=== PATIENT | male | born 1965 | race Caucasian/White ===

== ENCOUNTER 2017-02-14 11:14 | Emergency (ER) | payer MEDICAID ==
[~2017-02-14] VITALS: Ht 175.3 cm; Wt 93.4 kg
[~2017-02-14 11:14] MED LIST: /HYDR10T PO; /NITR4TASL SL; /PANT40TA OR; /TIOT18INH INH; ALB2.5NEB INH; ALBU17IN INH; ALBU2TAB INH; AMBI12.52 PO; ASPI325T OR; ASPI81TA13 PO; ASPI81TA83 OR; ASPI81TA85 PO; ATEN25TA OR; BACTROBAN; BUTATAB16 PO; CARV3.12 PO; CRES40TA PO; DEPA500T2 OR; DOCU10ELUD PO; FIORICET OR; GABA300C3 PO; GABA600T3 OR; ISOS10TAB PO; ISOS30TA4 PO; KEPP500T6 PO; LIDO5OI TOP; LISI2.5T3 PO; LORA10TA2 PO; MECL-68 PO; METF1000 PO; NITR4TASL SL; NITROSTAT SL; PARO40TA PO; PAXI40TA OR; PHEN 25 PO; PLAV75TA2 OR; PLAV75TA38 PO; RANI150T PO; SIMV40TA2 OR; SYMB80AE IN; TIOT18INH INH; TRAZ150T OR; TRAZODONE PO; VITA20008 PO; VITA500C OR; ZANT150T PO; ZONI100C2 PO; [UNRECOGNIZED DRUG - CODE] EX
[2017-02-14] MEDS ORDERED: KEPP1000 PO (11:42)
[2017-02-14] MEDS ORDERED: AMBI5TAB PO (11:42)
[2017-02-14] MEDS ORDERED: NEUR600T PO (11:42)
[2017-02-14] MEDS ORDERED: FOLI5INJ2 SC (11:42)
[2017-02-14] MEDS ORDERED: FURO20TA2 PO (11:42)
[2017-02-14] MEDS ORDERED: MELO15TA4 PO (11:42)
[2017-02-14] MEDS ORDERED: LISI2.5T3 PO (11:42)
[2017-02-14] MEDS ORDERED: CORE6.25 PO (11:42)
[2017-02-14 12:59] LABS: BASO % 0.1 % (0.0-1.0); EOS % 0.1 % (0.0-3.0); LARGE UNSTAINED CELL # 0.2 K/mm3 (0.0-0.4); LARGE UNSTAINED CELL % 1.3 % (0.0-4.0); LYMPH # 1.1 K/mm3 (1.5-4.5); LYMPH % 7.1 % (24.0-44.0); MEAN CORPUSCULAR HEMOGLOBIN 27.2 pg (27.0-33.0); MEAN CORPUSCULAR HGB CONC 31.4 g/dl (32.0-36.5); MEAN CORPUSCULAR VOLUME 86.6 fl (80.0-96.0); MONO # 0.5 K/mm3 (0.0-0.8); MONO % 4.2 % (0.0-5.0); NEUTROPHILS % 87.2 % (36.0-66.0); PLATELET COUNT, AUTOMATED 329 k/mm3 (150-450); RED CELL DISTRIBUTION WIDTH 13.6 % (11.5-14.5); WHITE BLOOD COUNT 12.6 K/mm3 (4.0-10.0)
[2017-02-14 13:13] LABS: ALBUMIN 3.8 GM/DL (3.2-5.2); ALBUMIN/GLOBULIN RATIO 0.95 (1.00-1.93); BILIRUBIN,DIRECT 0.1 MG/DL (0.0-0.2); BILIRUBIN,TOTAL 0.4 MG/DL (0.2-1.0); TOTAL PROTEIN 7.8 GM/DL (6.4-8.2)
[2017-02-14 13:15] LABS: ANION GAP 8 MEQ/L (8-16); BLOOD UREA NITROGEN 10 MG/DL (7-18); CALCIUM LEVEL 9.4 MG/DL (8.5-10.1); CARBON DIOXIDE LEVEL 27 MEQ/L (21-32); CHLORIDE LEVEL 105 MEQ/L (98-107); GLOMERULAR FILTRATION RATE > 60.0 (>56); GLUCOSE, FASTING 116 MG/DL (70-105); POTASSIUM SERUM 3.7 MEQ/L (3.5-5.1); SODIUM LEVEL 140 MEQ/L (136-145)
[2017-02-14] MEDS ORDERED: PROT1TAB2 PO (13:37)
[2017-02-14] MEDS ORDERED: CARA1TAB2 PO (13:37)
[2017-02-14] MEDS ORDERED: PANTOPRAZOLE 40MG INJ (PROTONIX) (C9113) IV ONE (13:45)
[2017-02-14 14:44] VITALS: BP 100/57
--- NOTE | 2017-02-15 20:44 | ECGEPIP ---
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
== END 2017-02-14 14:50 | disposition home or self-care (01) ==
LOC: M ED 13:24
DX: K29.70 Gastritis, unspecified, without bleeding (principal); K22.70 Barrett's esophagus without dysplasia; J44.9 Chronic obstructive pulmonary disease, unspecified; I10 Essential (primary) hypertension; I25.10 Atherosclerotic heart disease of native coronary artery without angina pectoris; F17.210 Nicotine dependence, cigarettes, uncomplicated; Z88.0 Allergy status to penicillin; Z91.048 Other nonmedicinal substance allergy status; Z91.040 Latex allergy status; Z79.899 Other long term (current) drug therapy; Z79.02 Long term (current) use of antithrombotics/antiplatelets
CPT/HCPCS: 80048; 80076; 82550; 82553; 83690; 85025; 93005; 93041; 94760; 96374; 99285; C9113

== ENCOUNTER 2017-04-04 15:45 | Observation (INO) | payer MEDICAID ==
[~2017-04-04] VITALS: Ht 175.3 cm; Wt 97.4 kg
[~2017-04-04 15:45] MED LIST changes: +AMBI5TAB PO; +CARA1TAB2 PO; +CORE6.25 PO; +FOLI5INJ2 SC; +FURO20TA2 PO; +GABA-282 PO; -GABA300C3 PO; +KEPP1000 PO; +MELO15TA4 PO; +NEUR600T PO; -PARO40TA PO; +PARO40TA2 PO; +PROT1TAB2 PO
[2017-04-04] MEDS ORDERED: FOLI1TAB2 PO (16:02)
[2017-04-04] MEDS ORDERED: ASPIRIN 81 MG CHEW TABLET PO ONE (16:30)
[2017-04-04] MEDS ORDERED: ONDANSETRON 4MG/2ML VIAL (J2405) IV ONE (16:30)
[2017-04-04 16:43] LABS: BASO % 0.7 % (0.0-1.0); EOS # 0.1 K/mm3 (0.0-0.50); EOS % 0.9 % (0.0-3.0); LARGE UNSTAINED CELL # 0.2 K/mm3 (0.0-0.4); LARGE UNSTAINED CELL % 3.7 % (0.0-4.0); LYMPH # 1.9 K/mm3 (1.5-4.5); LYMPH % 25.8 % (24.0-44.0); MEAN CORPUSCULAR HEMOGLOBIN 26.2 pg (27.0-33.0); MEAN CORPUSCULAR HGB CONC 32.1 g/dl (32.0-36.5); MEAN CORPUSCULAR VOLUME 81.7 fl (80.0-96.0); MONO # 0.5 K/mm3 (0.0-0.8); MONO % 8.2 % (0.0-5.0); NEUTROPHILS # 3.9 K/mm3 (1.8-7.7); NEUTROPHILS % 60.7 % (36.0-66.0); PLATELET COUNT, AUTOMATED 262 k/mm3 (150-450); RED CELL DISTRIBUTION WIDTH 14.4 % (11.5-14.5); WHITE BLOOD COUNT 6.4 K/mm3 (4.0-10.0)
[2017-04-04] MEDS: MORPHINE 4 MG/ML 1ML SYRINGE IV PRN ×2 (16:44→17:50)
[2017-04-04 16:54] LABS: INR 0.98
[2017-04-04 17:03] LABS: ALBUMIN 3.5 GM/DL (3.2-5.2); ALBUMIN/GLOBULIN RATIO 0.97 (1.00-1.93); ALKALINE PHOSPHATASE 115 U/L (45-117); ALT/SGPT 18 U/L (12-78); ANION GAP 8 MEQ/L (8-16); AST/SGOT 16 U/L (15-37); BILIRUBIN,DIRECT < 0.1 MG/DL (0.0-0.2); BILIRUBIN,TOTAL 0.3 MG/DL (0.2-1.0); BLOOD UREA NITROGEN 9 MG/DL (7-18); CALCIUM LEVEL 8.5 MG/DL (8.5-10.1); CARBON DIOXIDE LEVEL 26 MEQ/L (21-32); CHLORIDE LEVEL 108 MEQ/L (98-107); CREATININE FOR GFR 0.94 MG/DL (0.70-1.30); FREE T4 0.95 NG/DL (0.76-1.46); GLOMERULAR FILTRATION RATE > 60.0 (>56); GLUCOSE, FASTING 84 MG/DL (70-105); POTASSIUM SERUM 3.6 MEQ/L (3.5-5.1); SODIUM LEVEL 142 MEQ/L (136-145); TOTAL PROTEIN 7.1 GM/DL (6.4-8.2)
[2017-04-04] MEDS ORDERED: ISOVUE-370 76% 100ML VIAL (Q9967) As Ordered ONE (17:14)
[2017-04-04] MEDS ORDERED: methylPREDNISolone INJ 125 MG/2 ML VIAL (J2930) IV ONE (17:15)
[2017-04-04] MEDS ORDERED: IPRATROPIUM 0.5MG/ALBUTEROL 2.5MG INH SOL UD 3ML (DUONEB)(J7620) NEB ONE (17:15)
[2017-04-04] MEDS ORDERED: ALBUTEROL SULFATE 2.5 MG/0.5 ML INH NEB SOLN INH ONE (17:15)
[2017-04-04 17:51] LABS: ABG BASE EXCESS -1.8 (-2.0-2.0); ABG HCO3 23.5 MEQ/L (22.0-26.0); ABG PARTIAL PRESSURE O2 74.6 mmHg (75.0-100.0); ABG STANDARD HCO3 22.9 MEQ/L (22.0-26.0); ABG TOTAL CO2 24.8 MEQ/L (22.0-29.0); ABG pH (ARTERIAL) 7.366 UNITS (7.350-7.450)
[2017-04-04] MEDS: NS 1,000 ML IV SCH (18:30)
--- NOTE | 2017-04-04 18:55 | REP ---
AP PORTABLE CHEST: 04/04/2017: Comparison: 02/12/2017, 02/09/2017 chest x-rays. Clinical history: Chest pain. Findings: Lungs are adequately inflated. There is some minor basilar fibrotic change. No effusion, infiltrate or mass. There is underlying fibrosis and COPD. Heart size not enlarged for this degree of inflation. There are sternotomy wires and clips in the mediastinum. The two level anterior discectomy plate and screw fixation device noted lower cervical spine as before. There is mildly tortuous but normal for age. Airway intact. No widened mediastinum. No edema. Impression: 1. Some basilar fibrotic change without cardiomegaly, edema, effusion or acute infiltrate. 2. Prior sternotomy and anterior cervical discectomy and fusion are stable. Signed by Too Garcia MD 04/05/2017 05:21 P
--- NOTE | 2017-04-04 19:32 | REP ---
CT ANGIO CHEST: REASON: Chest pain. COMPARISON: 01/27/2017 from [facility] which showed no pulmonary embolus. CONTRAST: 100 mL Isovue-370. Once again there is excellent visualization of the pulmonary arterial vasculature showing no evidence of an abnormal focal filling defect that would be considered consistent with an acute pulmonary embolus. The mediastinum and pulmonary catrachito are unchanged showing no evidence of a mass or adenopathy. There are no pleural or pericardial effusions. There is no change in the appearance of the imaged upper abdomen or imaged osseous structures. Evaluation of the lung chu show evidence of bilateral subsegmental atelectatic change without evidence of a significant abnormal nodule, mass, or opacity. No significant change in the appearance of the lung chu when compared to the prior exam. IMPRESSION:1. No evidence of a pulmonary embolus. 2. Bilateral dependent subsegmental atelectatic changes. Signed by Rich Killian DO 04/05/2017 03:36 P
[2017-04-04] MEDS ORDERED: ALBU83IN INH (20:47)
[2017-04-04] MEDS ORDERED: HYDR50CA2 PO (20:47)
[2017-04-04] MEDS ORDERED: TYLE325T5 PO (20:47)
[2017-04-04] MEDS ORDERED: PANT40TA2 PO (20:47)
[2017-04-04] MEDS ORDERED: VITA100066 PO (20:47)
[2017-04-04] MEDS ORDERED: ZOLP10TA2 PO (20:47)
[2017-04-04] MEDS ORDERED: VITA10002 PO (20:47)
[2017-04-04] MEDS ORDERED: ACET30TAB PO (20:47)
[2017-04-04] MEDS ORDERED: SUCR10SS PO (20:47)
[2017-04-04] MEDS ORDERED: CYANOCOBALAMIN 500 MCG TAB PO SCH (21:00)
[2017-04-04] MEDS ORDERED: ROSUVASTATIN 10 MG TAB (CRESTOR) PO SCH (21:00)
[2017-04-04] MEDS ORDERED: KETOROLAC 30 MG/ML VIAL (J1885) IV ONE (21:45)
[2017-04-04] MEDS ORDERED: KETOROLAC 30 MG/ML VIAL (J1885) As Ordered ONE (21:45)
[2017-04-05] MEDS ORDERED: ONDANSETRON 4 MG TAB (S0181) PO PRN
[2017-04-05] MEDS ORDERED: ONDANSETRON 4MG/2ML VIAL (J2405) IV PRN
[2017-04-05] MEDS ORDERED: IPRATROPIUM 0.5MG/ALBUTEROL 2.5MG INH SOL UD 3ML (DUONEB)(J7620) NEB PRN
[2017-04-05] MEDS ORDERED: ACETAMINOPH W/CODEINE #3 TAB UD PO PRN
--- NOTE | 2017-04-05 00:09 | HPEPDOC ---
Medical History and Physical Date of Admission April 04, 2017 at 23:50 History and Physical HISTORY AND PHYSICAL Date of admission: 04/04/2017 PCP: Dr. Anderson Chief complaint: Chest pain and shortness of breath HPI: 52-year-old male with coronary artery disease status post cardiac stents and CABG, hyperlipidemia, hypertension, COPD, seizure disorder, alcoholic liver disease who presented with shortness of breath and chest pain. He states that he went to see a back doctor today, and while at the back doctor he mentioned that he had chest pain and shortness of breath, so the back doctor advised him to come straight to the emergency department. He states that the chest pain and shortness of breath started at 2:10 PM today. He describes it as centrally located and nonradiating, with a sensation of a needle going through his chest. He states that nothing really made it better or worse. He does state that when he sits up, his difficulty breathing gets a little bit better, but walking makes his difficulty breathing worse. He reports that he is still experiencing a little bit of this sensation. Past medical history: coronary artery disease status post cardiac stents and CABG, hyperlipidemia, hypertension, COPD, seizure disorder, alcoholic liver disease Past surgical history: CABG, cardiac stents, multiple back surgeries, appendectomy, adenoidectomy, jaw surgery, eustachian tube surgery Family history: He reports a sister who has cancer, but he is unsure what kind. Social history: The patient currently lives alone. He smokes approximately half a pack per day. He quit drinking and quit using illicit drugs approximately 9 years ago. Allergies: Latex, penicillin, tape Review of systems: General: Positive for chills, negative for fever Eyes: Negative for vision changes and ocular discharge ENT: Positive for sore throat, negative for nose bleed Cardiovascular: Positive for chest pain and palpitations Respiratory: Positive for cough and shortness of breath GI: Negative for nausea, vomiting, diarrhea Musculoskeletal: Positive for neck and back pain Neuro: Positive for headache, negative for dizziness, numbness, tingling Psych: Positive for depression, negative for suicidal ideation Endocrine: Negative for polyuria : Positive for dysuria Heme: Negative for bruising and bleeding Home meds: See below Physical exam: Vital signs: Vital Signs Date Time Temp Pulse Resp B/P (MAP) Pulse Ox O2 Delivery O2 Flow Rate FiO2 04/05/17 00:01 77 93 04/04/17 23:31 101/65 (77) 04/04/17 19:31 97.9 15 04/04/17 15:46 Room Air Gen.: awake, alert, no acute distress Eyes: Extraocular movements intact, normal sclera ENT: Moist mucous membranes Cardiovascular: RRR, no murmurs rubs or gallops Lungs: clear to auscultation bilaterally, no rales, rhonchi, or wheeze Abdomen: Soft, TTP of RUQ Musculoskeletal: normal range of motion Extremities: No peripheral edema Neuro: normal speech, no focal deficits, alert and oriented to person, being in an ED, and year; he got which hospital right on the second try and he told me he doesn't know the president because he has "trouble understanding things" Psych: Normal mood with congruent affect Labs and radiology: See below CBC, CMP, coags, BMP, TSH, free T4 are all unremarkable Troponins are negative 2 EKG is not indicative of acute infarct or ischemia Chest x-rays unremarkable CTA shows no evidence of PE Assessment and plan: 52-year-old male with coronary artery disease status post cardiac stents and CABG, hyperlipidemia, hypertension, COPD, seizure disorder, alcoholic liver disease who presented with shortness of breath and chest pain. 1. Shortness of breath with history of COPD: There is no clear etiology for this. The patient is stable on room air, and chest imaging shows no evidence of edema or infection. A BNP is normal. He is not wheezing. Given his history of COPD, we'll continue his home Spiriva, loratadine. We will also start the patient on as needed and scheduled DuoNeb's. 2. Chest pain with history of coronary artery disease status post cardiac stents and CABG: The patient does have a significant cardiac history, but at this point, his cardiac workup has been normal. We will complete a third troponin and monitor him on telemetry. Given his history of coronary artery disease with stenting and CABG, we will continue his home aspirin, Plavix, beta bernie, statin. 3. Hypertension: Continue home beta bernie, Lasix, HUONG inhibitor. 4. Seizure disorder: Continue home Keppra. 5. Alcoholic liver disease: The patient states he has been sober for 9 years and his LFTs are within normal limits. He does report some tenderness to palpation upon exam, so we will further evaluate with a right upper quadrant ultrasound. 6. Dysuria: We will check a UA. The patient is afebrile with a normal white count DVT prophylaxis: SCDs Dispo: place in observation status on the service of Dr. Rose; anticipate the patient should be up to go home within 24 hours Vital Signs Vital Signs Date Time Temp Pulse Resp B/P (MAP) Pulse Ox O2 Delivery O2 Flow Rate FiO2 04/05/17 00:01 77 93 04/04/17 23:31 101/65 (77) 04/04/17 19:31 97.9 15 04/04/17 15:46 Room Air Laboratory Data Labs 24H Laboratory Tests 2 04/04/17 16:27: White Blood Count 6.4, Red Blood Count 4.49, Hemoglobin 11.8L, Hematocrit 36.7L , Mean Corpuscular Volume 81.7, Mean Corpuscular Hemoglobin 26.2L, Mean Corpuscular Hemoglobin Concent 32.1, Red Cell Distribution Width 14.4, Platelet Count 262, Neutrophils (%) (Auto) 60.7, Lymphocytes (%) (Auto) 25.8, Monocytes ( %) (Auto) 8.2H, Eosinophils (%) (Auto) 0.9, Basophils (%) (Auto) 0.7, Neutrophils # (Auto) 3.9, Lymphocytes # (Auto) 1.9, Monocytes # (Auto) 0.5, Eosinophils # (Auto) 0.1, Basophils # (Auto) 0.0, Large Unclassified Cells % 3.7 , Large Unclassified Cells # 0.2, Prothrombin Time 13.1, Prothromb Time International Ratio 0.98, Activated Partial Thromboplast Time 26.9, Anion Gap 8 , Glomerular Filtration Rate > 60.0, Calcium Level 8.5, Aspartate Amino Transf ( AST/SGOT) 16, Alanine Aminotransferase (ALT/SGPT) 18, Alkaline Phosphatase 115, Total Bilirubin 0.3, Direct Bilirubin < 0.1, Total Creatine Kinase 108, Creatine Kinase MB 1.0, Creatine Kinase MB Relative Index 0.92, Troponin I < 0.02, B-Type Natriuretic Peptide 35.5, Total Protein 7.1, Albumin 3.5, Albumin/ Globulin Ratio 0.97L, Thyroid Stimulating Hormone (TSH) 1.090, Free Thyroxine 0.95 04/04/17 17:35: Blood Gas Bicarbonate Standard 22.9, Arterial Blood pH 7.366, Arterial Blood Partial Pressure CO2 42.0, Arterial Blood Partial Pressure O2 74.6L, Arterial Blood Total CO2 24.8, Arterial Blood HCO3 23.5, Arterial Blood Base Excess -1.8 , Arterial Blood Oxygen Saturation 94.3L 04/04/17 21:47: Total Creatine Kinase 104, Creatine Kinase MB 1.0, Creatine Kinase MB Relative Index 0.96, Troponin I < 0.02 CBC/BMP Laboratory Tests 04/04/17 16:27 Red Blood Count 4.49, Mean Corpuscular Volume 81.7, Mean Corpuscular Hemoglobin 26.2 L, Mean Corpuscular Hemoglobin Concent 32.1, Red Cell Distribution Width 14.4, Neutrophils (%) (Auto) 60.7, Lymphocytes (%) (Auto) 25.8, Monocytes (%) ( Auto) 8.2 H, Eosinophils (%) (Auto) 0.9, Basophils (%) (Auto) 0.7, Neutrophils # (Auto) 3.9, Lymphocytes # (Auto) 1.9, Monocytes # (Auto) 0.5, Eosinophils # ( Auto) 0.1, Basophils # (Auto) 0.0 Home Medications Scheduled Aspirin (Aspirin EC) 81 Mg Tab, 81 MG PO DAILY Carvedilol (Coreg) 6.25 Mg Tab, 6.25 MG PO BID Cholecalciferol (Vitamin D) 1,000 Unit Tab, 1,000 UNIT PO BID Clopidogrel Bisulfate (Plavix) 75 Mg Tab, 75 MG PO DAILY Cyanocobalamin (Vitamin B-12) 1,000 Mcg Tab, 1,000 MCG PO QHS Folic Acid (Folic Acid) 1 Mg Tab, 1 MG PO DAILY Furosemide (Furosemide) 20 Mg Tab, 20 MG PO DAILY Gabapentin (Neurontin) 600 Mg Tab, 600 MG PO TID Hydroxyzine Pamoate (Hydroxyzine Pamoate) 50 Mg Cap, 50 MG PO BID Levetiracetam (Keppra) 1,000 Mg Tab, 1,000 MG PO BID Lisinopril (Lisinopril) 2.5 Mg Tab, 2.5 MG PO DAILY Loratadine (Loratadine) 10 Mg Tab, 10 MG PO DAILY Pantoprazole Sodium (Pantoprazole Sodium) 40 Mg Tab, 40 MG PO DAILY Paroxetine (Paroxetine HCl) 40 Mg Tab, 40 MG PO DAILY Rosuvastatin Calcium (Crestor) 40 Mg Tab, 40 MG PO QHS Sucralfate (Sucralfate) 1 Gm/10 Ml Sandra, 1 GM PO ACHS Tiotropium [place] Monohydrate (Spiriva Handihaler) 5 Inhalation/Inhaler Powd, 1 INHALATION INH DAILY Zolpidem Tartrate (Zolpidem Tartrate) 10 Mg Tab, 10 MG PO QHS Zonisamide (Zonisamide) 100 Mg Cap, 300 MG PO QHS Scheduled PRN Acetaminophen (Tylenol) 325 Mg Tab, 650 MG PO Q4H PRN for PAIN Acetaminophen/Codeine (Tylenol/Codeine #3) Tab, 1 TAB PO TID PRN for PAIN Albuterol Sulfate (Ventolin Hfa) 200 Puff/8 Gm Aers, 2 PUFF INH Q4H PRN for SHORTNESS OF BREATH Albuterol Sulfate (Albuterol Sulfate) 2.5 Mg/3 Ml Nebu, 2.5 MG INH QID PRN for SHORTNESS OF BREATH Nitroglycerin (Nitrostat) 0.4 Mg Subl, 0.4 MG SL Q5MP PRN for CHEST PAIN Allergies Coded Allergies: Latex (Verified Allergy, Mild, RASH, 02/14/17) Penicillins (Verified Allergy, Mild, RASH, 02/14/17) Penicillins Cross Reactors (Verified Allergy, Mild, RASH, 02/14/17) TAPE (Verified Allergy, Unknown, HOSPITAL TAPE, 02/14/17) TJ RICH April 05, 2017 00:09
[2017-04-05] MEDS: hydrOXYzine 50 MG TAB PO SCH ×2 (00:52→09:10)
[2017-04-05] MEDS: CARVedilol 6.25 MG TAB PO SCH ×2 (00:54→09:00)
[2017-04-05] MEDS: SUCRALFATE SUSP 1GM/10ML UD PO SCH ×3 (00:54→12:40)
[2017-04-05] MEDS: VITAMIN D 1,000 INTERNATIONAL UNITS TABLET PO SCH ×2 (00:55→09:10)
[2017-04-05] MEDS: levETIRAcetam 250MG TABLET (KEPPRA) PO SCH ×2 (00:59→09:09)
[2017-04-05] MEDS: GABAPENTIN 300 MG CAP PO SCH ×2 (00:59→09:08)
[2017-04-05] MEDS: ACETAMINOPHEN TAB 650MG DOSE (2X325MG) PO PRN ×2 (01:03→06:53)
--- NOTE | 2017-04-05 01:50 | REPUSA ---
CLINICAL HISTORY: Abdominal pain. TECHNIQUE: Realtime sonographic images were obtained in multiple projections. COMMENTS: The liver is of normal size, parenchyma demonstrates normal echogenicity. No discrete hepatic mass is seen. There is no intra or extrahepatic biliary ductal dilatation. CBD measures 3.7mm. The gallbladder is p hysiologically distended without evidence of calculi. The gallbladder wall is not thickened and there is no pericholecystic fluid. There is no abdominal ascites. The right kidney measures 12.08x5.92x 5.76 cm, free of hydronephrosis. Right renal nonobstructing sto annette. IMPRESSION: No evidence of cholelithiasis or acute cholecystitis. Right renal nonobstructing stones. Thank you for your kind referral of this patient.
[2017-04-05] MEDS: IPRATROPIUM 0.5MG/ALBUTEROL 2.5MG INH SOL UD 3ML (DUONEB)(J7620) NEB SCH ×2 (02:13→07:47)
[2017-04-05] MEDS: NS 1,000 ML IV SCH ×2 (03:32→10:30)
[2017-04-05 03:57] VITALS: BP 104/66
[2017-04-05 07:39] LABS: BASO % 0.1 % (0.0-1.0); EOS % 0.2 % (0.0-3.0); LARGE UNSTAINED CELL % 0.4 % (0.0-4.0); LYMPH # 0.5 K/mm3 (1.5-4.5); LYMPH % 6.4 % (24.0-44.0); MEAN CORPUSCULAR HEMOGLOBIN 26.3 pg (27.0-33.0); MEAN CORPUSCULAR HGB CONC 31.2 g/dl (32.0-36.5); MEAN CORPUSCULAR VOLUME 84.4 fl (80.0-96.0); MONO # 0.2 K/mm3 (0.0-0.8); MONO % 2.6 % (0.0-5.0); NEUTROPHILS # 6.6 K/mm3 (1.8-7.7); NEUTROPHILS % 90.3 % (36.0-66.0); PLATELET COUNT, AUTOMATED 240 k/mm3 (150-450); RED CELL DISTRIBUTION WIDTH 14.3 % (11.5-14.5); WHITE BLOOD COUNT 7.3 K/mm3 (4.0-10.0)
[2017-04-05 08:00] VITALS: BP 94/56
[2017-04-05] MEDS ORDERED: TIOTROPIUM INHALER/CAPSULE (SPIRIVA) INH SCH (08:00)
[2017-04-05 08:03] LABS: ALBUMIN 3.2 GM/DL (3.2-5.2); ALBUMIN/GLOBULIN RATIO 0.82 (1.00-1.93); ALKALINE PHOSPHATASE 104 U/L (45-117); ALT/SGPT 14 U/L (12-78); ANION GAP 8 MEQ/L (8-16); AST/SGOT 15 U/L (15-37); BILIRUBIN,TOTAL 0.3 MG/DL (0.2-1.0); BLOOD UREA NITROGEN 14 MG/DL (7-18); CALCIUM LEVEL 8.4 MG/DL (8.5-10.1); CARBON DIOXIDE LEVEL 24 MEQ/L (21-32); CHLORIDE LEVEL 107 MEQ/L (98-107); CREATININE FOR GFR 1.23 MG/DL (0.70-1.30); GLOMERULAR FILTRATION RATE > 60.0 (>56); GLUCOSE, FASTING 177 MG/DL (70-105); MAGNESIUM LEVEL 1.9 MG/DL (1.8-2.4); POTASSIUM SERUM 3.8 MEQ/L (3.5-5.1); SODIUM LEVEL 139 MEQ/L (136-145); TOTAL PROTEIN 7.1 GM/DL (6.4-8.2)
[2017-04-05 09:00] VITALS: BP 94/56
[2017-04-05] MEDS ORDERED: PANTOPRAZOLE 40MG TAB (PROTONIX) PO SCH (09:00)
[2017-04-05] MEDS ORDERED: FOLIC ACID 1 MG TAB PO SCH (09:00)
[2017-04-05] MEDS ORDERED: PARoxetine 20 MG TAB PO SCH (09:00)
[2017-04-05] MEDS ORDERED: FUROSEMIDE 20 MG TAB PO SCH (09:00)
[2017-04-05] MEDS ORDERED: LISINOPRIL *2.5 MG* TAB PO SCH (09:00)
[2017-04-05] MEDS ORDERED: CLOPIDOGREL 75 MG TAB PO SCH (09:00)
[2017-04-05] MEDS ORDERED: LORATADINE 10 MG TAB PO SCH (09:00)
[2017-04-05] MEDS ORDERED: ASPIRIN 81 MG ENTERIC TAB PO SCH (09:00)
[2017-04-05 12:00] VITALS: BP 100/59
--- NOTE | 2017-04-06 08:27 | ECGEPIP ---
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
--- NOTE | 2017-04-06 08:36 | ECGEPIP ---
Stationary ECG Study [facility] - ED Test Date: 2017-04-05 Pat Name: NHUNG MALDONADO Department: Room: [place] [address] Gender: M Roll Cleaner: leydi : 1965 Requested By: Sai Del Castillo Order Number: [id number] Reading MD: Che Park Measurements Intervals [place] Rate: 63 P: 35 ID: 161 QRS: 37 QRSD: 111 T: 71 QT: 421 QTc: 434 Interpretive Statements SINUS RHYTHM POSSIBLE LEFT ATRIAL ENLARGEMENT INCOMPLETE RIGHT BUNDLE BRANCH BLOCK MODERATE T-WAVE ABNORMALITY, CONSIDER ANTERIOR ISCHEMIA SIMILAR 04/04/17 Electronically Signed On 04-06-2017 8:36:14 EDT by Che Park
--- NOTE | 2017-04-06 14:22 | DSES ---
DATE OF ADMISSION: 04/04/2017 DATE OF DISCHARGE: 04/05/2017 PRIMARY CARE PROVIDER: Jose Anderson MD FINAL DIAGNOSES: 1. Shortness of breath with musculoskeletal chest pain, rule out acute coronary syndrome (ACS). 2. History of hypertension. 3. Seizure disorder. 4. Alcoholic liver disease. 5. Dysuria. 6. Morbid obesity. HISTORY OF PRESENT ILLNESS: This is a 52-year-old male patient with underlying medical history of coronary artery disease status post coronary stent and coronary artery bypass graft (CABG), dyslipidemia, hypertension, chronic obstructive pulmonary disease (COPD), seizure disorder, alcoholic liver disease, who presented with shortness of breath, chest pain. He states that he went to see a back doctor yesterday and while at the back doctor he had mentioned that he had chest pain and shortness of breath so the back doctor advised him to come straight to the emergency room and he states that his chest pain and shortness of breath started around 2:10 p.m. today and described it as centrally located and nonradiating with a sensation that a needle is going through his chest. He states that nothing really made it better or worse. He does state that when he sits up his breathing gets better, when he is walking the breathing gets worse. Still having this sensation in the emergency room. HOSPITAL COURSE: In the emergency, CT angio was done, negative for pulmonary embolism (PE). EKG was done. Chest xray, ultrasound of the abdomen has also been done. Ultrasound of the abdomen shows no evidence of cholelithiasis or acute cholecystitis and right renal nonobstructing stone. Cardiac enzymes were done. Telemetry monitoring was done. Cardiac enzymes negative times three. BNP is 35.5. Bilirubin and liver function tests have been negative. Physical exam reveals pain to be exacerbated with palpation, likely musculoskeletal versus costochondritis. Physical therapy (PT) was done. Oxygen saturation was monitored. Patient does not quality for home oxygen. Patient passed physical therapy. Patient and family services (PFS) was consulted. Patient received [facility], reinstatement was advised. Home with physical therapy was recommended. VITAL SIGNS: Temperature 98.7, pulse 69, respirations 18, blood pressure 100/59, pulse oximetry 95% on room air. LABORATORY DATA: WBC 7.3, hemoglobin and hematocrit 11/35.4, platelets 240. Chemistry: Sodium 139, potassium 3.8, chloride 107, bicarbonate 24, BUN 14, creatinine 1.23. Cardiac enzymes negative times three, BNP 35.5. DISCHARGE MEDICATIONS: Patient's home medications of: - acetaminophen 650 mg by mouth every 4 hours as needed - Tylenol #3 one tablet three times a day as needed - Ventolin inhaler every 4 hours as needed - albuterol nebulizer treatments four times a day as needed - aspirin 81 mg by mouth daily - Coreg 6.25 mg by mouth twice a day - vitamin D 1000 units by mouth twice a day - Plavix 75 mg by mouth daily - vitamin B12 1000 mcg by mouth nightly - folic acid 1 mg by mouth daily - Lasix 20 mg by mouth daily - Neurontin 600 mg by mouth three times a day - hydroxyzine 60 mg by mouth twice a day - Keppra 1000 mg by mouth twice a day - lisinopril 2.5 mg by mouth daily - loratadine 10 mg by mouth daily - nitroglycerin 0.4 mg sublingual every 5 minutes as needed - Protonix 40 mg by mouth daily - Paxil 40 mg by mouth daily - Crestor 40 mg by mouth nightly - Carafate 1 gram by mouth before food and nightly - Spiriva inhalation daily - Ambien 10 mg by mouth nightly - zonisamide 300 mg by mouth nightly DISCHARGE INSTRUCTIONS: Patient is instructed to followup with primary care provider for further workup, return to the hospital if symptoms worsen.
== END 2017-04-05 17:47 | disposition home or self-care (01) ==
LOC: M ED 16:41 → M ED INP 23:50
PROVIDERS: ADMIT Hospitalist; ATTEND Hospitalist
DX: R07.89 Other chest pain (principal); R06.02 Shortness of breath; I10 Essential (primary) hypertension; K70.9 Alcoholic liver disease, unspecified; R30.0 Dysuria; E66.01 Morbid (severe) obesity due to excess calories; I25.10 Atherosclerotic heart disease of native coronary artery without angina pectoris; Z95.1 Presence of aortocoronary bypass graft; Z79.899 Other long term (current) drug therapy; Z79.02 Long term (current) use of antithrombotics/antiplatelets; J44.9 Chronic obstructive pulmonary disease, unspecified
CPT/HCPCS: 36415; 36600; 71010; 71275; 76705; 80048; 80053; 80076; 81001; 82550; 82553; 82803; 83735; 83880; 84439; 84443; 85025; 85610; 85730; 93005; 93041; 94640; 96374; 96375; 96376; 97161; 99285; J1885; J2405; J2930; Q9967

== ENCOUNTER 2017-07-10 10:08 | Emergency (ER) | payer MEDICAID, MEDICARE, OTHER ==
[~2017-07-10] VITALS: Ht 175.3 cm; Wt 101.0 kg
[~2017-07-10 10:08] MED LIST changes: +ACET30TAB PO; +ALBU83IN INH; -ASPI81TA13 PO; +ASPI81TA24 PO; -CARA1TAB2 PO; +CARA1TAB6 PO; +FOLI1TAB4 PO; +HYDR50CA2 PO; -KEPP1000 PO; +KEPP10002 PO; +KEPP1TAB PO; -KEPP500T6 PO; +PANT40TA2 PO; +PLAV1TAB2 PO; -PLAV75TA38 PO; +SUCR10SS PO; +TYLE325T5 PO; +VITA10002 PO; +VITA100066 PO; +ZOLP10TA2 PO
[2017-07-10] MEDS: NS 1,000 ML IV ONE (12:12)
[2017-07-10 12:17] LABS: BASO # 0.1 K/mm3 (0.0-0.2); BASO % 1.1 % (0.0-1.0); EOS # 0.1 K/mm3 (0.0-0.50); LARGE UNSTAINED CELL # 0.2 K/mm3 (0.0-0.4); LARGE UNSTAINED CELL % 2.7 % (0.0-4.0); LYMPH # 1.8 K/mm3 (1.5-4.5); MEAN CORPUSCULAR HGB CONC 31.4 g/dl (32.0-36.5); MEAN CORPUSCULAR VOLUME 79.6 fl (80.0-96.0); MONO # 0.7 K/mm3 (0.0-0.8); MONO % 10.7 % (0.0-5.0); NEUTROPHILS # 3.8 K/mm3 (1.8-7.7); NEUTROPHILS % 59.6 % (36.0-66.0); PLATELET COUNT, AUTOMATED 319 k/mm3 (150-450); RED CELL DISTRIBUTION WIDTH 15.4 % (11.5-14.5); WHITE BLOOD COUNT 6.3 K/mm3 (4.0-10.0)
[2017-07-10 12:20] LABS: INR 0.85
[2017-07-10 13:10] LABS: BLOOD UREA NITROGEN 9 MG/DL (7-18); GLUCOSE, FASTING 105 MG/DL (70-105)
[2017-07-10 13:11] LABS: ALBUMIN 3.5 GM/DL (3.2-5.2); ALBUMIN/GLOBULIN RATIO 0.78 (1.00-1.93); ALKALINE PHOSPHATASE 110 U/L (45-117); ALT/SGPT 15 U/L (12-78); ANION GAP 6 MEQ/L (8-16); AST/SGOT 20 U/L (15-37); BILIRUBIN,TOTAL 0.4 MG/DL (0.2-1.0); CALCIUM LEVEL 9.4 MG/DL (8.5-10.1); CARBON DIOXIDE LEVEL 28 MEQ/L (21-32); CHLORIDE LEVEL 106 MEQ/L (98-107); CREATININE FOR GFR 1.01 MG/DL (0.70-1.30); GLOMERULAR FILTRATION RATE > 60.0 (>56); POTASSIUM SERUM 4.5 MEQ/L (3.5-5.1); SODIUM LEVEL 140 MEQ/L (136-145)
--- NOTE | 2017-07-10 13:13 | REP ---
Acute abdominal series series including PA chest and supine upright abdomen: PA chest: Comparison is 04/08/2017. Lung chu are clear. Cardiac size is upper normal. The catrachito, mediastinum, and bony thorax are unremarkable. Sternotomy wires and mediastinal surgical clips are again identified. A coronary artery vascular stent is again identified, seen to better advantage on the prior lateral view. There is no free subdiaphragmatic air. There is a cervical spine stabilization plate, unchanged. Impression: Essentially negative PA chest. No interval change. Abdomen, supine upright views: Comparison is 05/31/2012. There is scattered gas in large and small bowel loops in a nonspecific pattern. No definite bowel obstruction is identified at this time. There are pelvic calcifications, unchanged, likely phleboliths. There is degenerative disc disease in the inferior lumbar spine. There are bilateral total hip arthroplasties. These were not present previously. Impression: Nonspecific bowel gas pattern. Signed by Adam Perez MD 07/10/2017 01:04 P
[2017-07-10] MEDS ORDERED: BACT800T5 PO (13:44)
[2017-07-10] MEDS ORDERED: MIRA3350 PO (13:44)
[2017-07-10] MEDS ORDERED: ANUS2.5C2 PR (13:44)
[2017-07-10 13:47] VITALS: BP 105/53
--- NOTE | 2017-07-10 16:11 | ECGEPIP ---
Stationary ECG Study [facility] - ED Test Date: 2017-07-10 Pat Name: NHUNG MALDONADO Department: Room: - Gender: M Nuisance Wildlife Control Operator: dedra : 1965 Requested By: HERMINIO MALDONADO PA-C. Order Number: [id number] Reading MD: Karthik Alcocer Measurements Intervals [place] Rate: 58 P: 32 PA: 156 QRS: 36 QRSD: 114 T: 57 QT: 427 QTc: 422 Interpretive Statements SINUS BRADYCARDIA INCOMPLETE RIGHT BUNDLE BRANCH BLOCK NSTTW ABNORMALITIES SIMILAR TO 04/05/17 Electronically Signed On 07-10-2017 16:11:16 EDT by Karthik Alcocer
== END 2017-07-10 14:21 | disposition home or self-care (01) ==
LOC: M ED 10:08
DX: R21 Rash and other nonspecific skin eruption (principal); K59.00 Constipation, unspecified; K64.8 Other hemorrhoids; Z88.0 Allergy status to penicillin; Z91.040 Latex allergy status; Z91.048 Other nonmedicinal substance allergy status; Z79.82 Long term (current) use of aspirin; Z79.899 Other long term (current) drug therapy

== ENCOUNTER 2017-07-18 10:05 | Emergency (ER) | payer MEDICAID ==
[~2017-07-18] VITALS: Ht 188 cm; Wt 103.6 kg
[~2017-07-18 10:05] MED LIST changes: +ANUS2.5C2 PR; +BACT800T5 PO; +MIRA3350 PO
[2017-07-18] MEDS ORDERED: ASPIRIN 81 MG CHEW TABLET PO ONE (10:15)
[2017-07-18 10:37] LABS: BASO # 0.1 K/mm3 (0.0-0.2); EOS # 0.1 K/mm3 (0.0-0.50); EOS % 1.2 % (0.0-3.0); LARGE UNSTAINED CELL # 0.2 K/mm3 (0.0-0.4); LYMPH # 1.6 K/mm3 (1.5-4.5); LYMPH % 21.7 % (24.0-44.0); MEAN CORPUSCULAR HEMOGLOBIN 25.5 pg (27.0-33.0); MEAN CORPUSCULAR HGB CONC 31.2 g/dl (32.0-36.5); MEAN CORPUSCULAR VOLUME 81.7 fl (80.0-96.0); MONO # 0.5 K/mm3 (0.0-0.8); MONO % 7.8 % (0.0-5.0); NEUTROPHILS # 4.4 K/mm3 (1.8-7.7); NEUTROPHILS % 65.4 % (36.0-66.0); PLATELET COUNT, AUTOMATED 300 k/mm3 (150-450); RED CELL DISTRIBUTION WIDTH 16.4 % (11.5-14.5); WHITE BLOOD COUNT 6.7 K/mm3 (4.0-10.0)
[2017-07-18 11:04] LABS: ALBUMIN 3.6 GM/DL (3.2-5.2); ALBUMIN/GLOBULIN RATIO 0.77 (1.00-1.93); ALKALINE PHOSPHATASE 99 U/L (45-117); ALT/SGPT 17 U/L (12-78); ANION GAP 5 MEQ/L (8-16); AST/SGOT 19 U/L (15-37); BILIRUBIN,DIRECT 0.1 MG/DL (0.0-0.2); BILIRUBIN,TOTAL 0.4 MG/DL (0.2-1.0); BLOOD UREA NITROGEN 11 MG/DL (7-18); CALCIUM LEVEL 9.7 MG/DL (8.5-10.1); CARBON DIOXIDE LEVEL 28 MEQ/L (21-32); CHLORIDE LEVEL 107 MEQ/L (98-107); CREATININE FOR GFR 0.97 MG/DL (0.70-1.30); GLOMERULAR FILTRATION RATE > 60.0 (>56); GLUCOSE, FASTING 95 MG/DL (70-105); POTASSIUM SERUM 3.8 MEQ/L (3.5-5.1); SODIUM LEVEL 140 MEQ/L (136-145); TOTAL PROTEIN 8.3 GM/DL (6.4-8.2)
--- NOTE | 2017-07-18 12:13 | REP ---
Portable chest x-ray: Semi-erect AP view. History: Chest pain. Comparison study: July 12, 2017. Findings: EKG monitoring electrodes overlie the chest. The patient is status post median sternotomy. The lungs are symmetrically aerated and clear. Cardiomediastinal silhouette and bony thorax are unremarkable. Impression: Prior sternotomy. Status post cervical fusion. No active disease. Signed by Nazario Lucia MD 07/18/2017 03:22 P
--- NOTE | 2017-07-18 13:18 | ECGEPIP ---
Stationary ECG Study [facility] - ED Test Date: 2017-07-18 Pat Name: NHUNG MALDONADO Department: Room: - Gender: M Skeins Yarn Examiner: [email or web address] : 1965 Requested By: ANDREA Jose Order Number: [id number] Reading MD: Che Park Measurements Intervals [place] Rate: 63 P: 30 RI: 152 QRS: 60 QRSD: 112 T: 70 QT: 411 QTc: 423 Interpretive Statements SINUS RHYTHM MODERATE INTRAVENTRICULAR CONDUCTION DELAY ST DEVIATION AND MODERATE T-WAVE ABNORMALITY, CONSIDER ANTERIOR ISCHEMIA SIMILAR 07/10/17 11:47 Electronically Signed On 07-18-2017 13:17:49 EDT by Che Park
[2017-07-18] MEDS: NITROGLYCERIN 0.4 MG SUBL TABLET SL PRN ×3 (13:21→14:00)
[2017-07-18] MEDS ORDERED: ISOVUE-370 76% 100ML VIAL (Q9967) As Ordered ONE (13:22)
[2017-07-18 14:00] VITALS: BP 118/68
--- NOTE | 2017-07-18 15:12 | REP ---
CT PULMONARY ANGIOGRAM: WITH IV CONTRAST. HISTORY: Chest pain and shortness of breath. COMPARISON STUDIES: 07/14/2017 CONTRAST DOSE: 75 mL of Isovue [address] TECHNIQUE: Helical scanning is acquired and overlapping 1.5 mm and contiguous 3 mm axial images are reformatted. In addition, a 3-D work station is deployed to generate thick slab maximum intensity projection images in sagittal and coronal imaging projections. CT PULMONARY ANGIOGRAPHIC FINDINGS: There is good opacification of the pulmonary arterial tree, and there is no CT evidence of pulmonary embolism noted. Thoracic aorta enhances homogeneously and is normal in course and caliber. Prior sternotomy wires are seen. Patient status post coronary artery bypass grafting. No pleural or pericardial effusion is seen. No hilar or mediastinal mass or adenopathy is seen. There appears to be a stent in the right subclavian artery. Maximum intensity projection images show no filling defect or vessel cutoff. There are several noncalcified pulmonary nodules noted. The largest of these is in the superior segment of the right lower lobe. This measures 6 mm in greatest diameter and is unchanged from the study done 4 days ago at [place]. There are also three additional noncalcified pulmonary nodules in the left lower lobe. Two of these are pleural based on the anterior aspect of the major fissure. The other is in the lateral pleural angle measuring 5 mm in greatest diameter. All of these nodules are visible and are unchanged when compared with the 12/[address] study. No new nodule is seen. The visualized upper abdominal structures are unremarkable. IMPRESSION: 1. No CT evidence of pulmonary embolism. 2. Stable pulmonary nodules on the right and left in the lower lobes. 3. Prior sternotomy coronary artery bypass grafting procedure. 4. Right subclavian artery stent in place. Signed by Nazario Lucia MD 07/18/2017 03:28 P
[2017-07-18] MEDS ORDERED: CLOPIDOGREL 300 MG TAB (PLAVIX) PO ONE (15:30)
[2017-07-18] MEDS ORDERED: MORPHINE 4 MG/ML 1ML SYRINGE IV ONE ×3 (15:30→19:45)
[2017-07-18] MEDS ORDERED: HEPARIN DRIP 25,000 UNITS in APPROPRIATE DILUENT 1 EA IV SCH (15:31)
[2017-07-18] MEDS ORDERED: HEPARIN SOD (PORCINE) 5000 UNITS/ML VIAL IV ONE (15:45)
[2017-07-18 20:12] VITALS: BP 130/74
--- NOTE | 2017-07-20 10:13 | ECGEPIP ---
Stationary ECG Study [facility] - ED Test Date: 2017-07-18 Pat Name: NHUNG MALDONADO Department: Room: - Gender: M Manual Winder: JMelissa : 1965 Requested By: ROMAN Mendez Order Number: [id number] Reading MD: Che Park Measurements Intervals [place] Rate: 56 P: 29 MT: 162 QRS: 35 QRSD: 112 T: 52 QT: 440 QTc: 426 Interpretive Statements SINUS BRADYCARDIA INCOMPLETE RIGHT BUNDLE BRANCH BLOCK ST DEVIATION AND MODERATE T-WAVE ABNORMALITY, CONSIDER ANTERIOR ISCHEMIA SIMILAR 07/18/17 Electronically Signed On 07-20-2017 10:13:28 EDT by Che Park
== END 2017-07-18 20:17 | disposition short-term general hospital (02) ==
LOC: M ED 10:05
DX: I20.0 Unstable angina (principal); I10 Essential (primary) hypertension; E78.4 Other hyperlipidemia; J44.9 Chronic obstructive pulmonary disease, unspecified; Z72.0 Tobacco use; Z95.1 Presence of aortocoronary bypass graft; Z98.61 Coronary angioplasty status
CPT/HCPCS: 36415; 71010; 71275; 80048; 80076; 82550; 82553; 83690; 83880; 85025; 93005; 93041; 94760; 96374; 96375; 96376; 99285; Q9967

== ENCOUNTER 2017-10-24 09:00 | Emergency (ER) | payer MEDICAID, MEDICARE, OTHER ==
[~2017-10-24] VITALS: Ht 175.3 cm; Wt 96.8 kg
[2017-10-24] MEDS ORDERED: MUPI2OI (09:19)
[2017-10-24] MEDS ORDERED: LEVOTAB10 (09:19)
[2017-10-24] MEDS ORDERED: ISOS30TA4 (09:19)
[2017-10-24] MEDS ORDERED: [UNRECOGNIZED DRUG - OTHER] (09:19)
[2017-10-24] MEDS ORDERED: FERR32TA (09:19)
[2017-10-24] MEDS ORDERED: ELIQ5TAB (09:19)
[2017-10-24] MEDS ORDERED: BACT2OIN10 TOP (09:54)
[2017-10-24] MEDS ORDERED: DOXY100C37 PO (09:54)
[2017-10-24 10:10] VITALS: BP 100/55
== END 2017-10-24 10:14 | disposition home or self-care (01) ==
LOC: M ED 09:00
DX: R21 Rash and other nonspecific skin eruption (principal); I10 Essential (primary) hypertension; J45.909 Unspecified asthma, uncomplicated; E78.00 Pure hypercholesterolemia, unspecified; F41.9 Anxiety disorder, unspecified; F33.9 Major depressive disorder, recurrent, unspecified; Z95.1 Presence of aortocoronary bypass graft; Z95.5 Presence of coronary angioplasty implant and graft; Z79.899 Other long term (current) drug therapy; Z79.82 Long term (current) use of aspirin; Z79.01 Long term (current) use of anticoagulants; Z88.0 Allergy status to penicillin; Z91.040 Latex allergy status; L23.1 Allergic contact dermatitis due to adhesives; F17.210 Nicotine dependence, cigarettes, uncomplicated

== ENCOUNTER 2017-12-12 10:40 | Inpatient (IN) | payer MEDICAID ==
[2017-12-12 11:27] LABS: ABG BASE EXCESS -1.2 (-2.0-2.0); ABG HCO3 23.8 MEQ/L (22.0-26.0); ABG O2 SATURATION 95.8 % (95.0-99.0); ABG PARTIAL PRESSURE CO2 40.9 mmHg (35.0-45.0); ABG PARTIAL PRESSURE O2 78.2 mmHg (75.0-100.0); ABG STANDARD HCO3 23.4 MEQ/L (22.0-26.0); ABG pH (ARTERIAL) 7.382 UNITS (7.350-7.450)
[2017-12-12 11:35] LABS: BASO # 0.1 10^3/uL (0.0-0.2); BASO % 0.8 % (0.0-1.0); EOS # 0.1 10^3/uL (0.0-0.50); EOS % 1.7 % (0.0-3.0); HEMATOCRIT 46.1 % (42.0-52.0); HEMOGLOBIN 15.3 g/dl (14.0-18.0); IMMATURE GRANULOCYTE % 0.3 % (0-0); LYMPH # 1.4 10^3/uL (1.5-4.5); LYMPH % 23.6 % (24.0-44.0); MEAN CORPUSCULAR HEMOGLOBIN 29.8 pg (27.0-33.0); MEAN CORPUSCULAR HGB CONC 33.2 g/dl (32.0-36.5); MEAN CORPUSCULAR VOLUME 89.7 fl (80.0-96.0); MONO # 0.7 10^3/uL (0.0-0.8); MONO % 11.9 % (0.0-5.0); NEUTROPHILS # 3.7 10^3/uL (1.8-7.7); NEUTROPHILS % 61.7 % (36.0-66.0); PLATELET COUNT, AUTOMATED 245 10^3/uL (150-450); RED BLOOD COUNT 5.14 10^6/uL (4.30-6.10); RED CELL DISTRIBUTION WIDTH 16.9 % (11.5-14.5)
[2017-12-12 11:44] LABS: INR 0.89; PROTHROMBIN TIME 12.1 SECONDS (12.4-14.5)
[2017-12-12 11:59] LABS: ALBUMIN/GLOBULIN RATIO 1.11 (1.00-1.93); ALKALINE PHOSPHATASE 106 U/L (45-117); ALT/SGPT 36 U/L (12-78); ANION GAP 8 MEQ/L (8-16); AST/SGOT 27 U/L (7-37); BILIRUBIN,DIRECT 0.1 MG/DL (0.0-0.2); BILIRUBIN,TOTAL 0.4 MG/DL (0.2-1.0); BLOOD UREA NITROGEN 4 MG/DL (7-18); CALCIUM LEVEL 8.9 MG/DL (8.5-10.1); CARBON DIOXIDE LEVEL 25 MEQ/L (21-32); CHLORIDE LEVEL 109 MEQ/L (98-107); CPK CREATINE PHOSPHOKINASE 132 U/L (39-308); CREATININE FOR GFR 0.96 MG/DL (0.70-1.30); GLOMERULAR FILTRATION RATE > 60.0 (>56); GLUCOSE, FASTING 104 MG/DL (70-105); POTASSIUM SERUM 4.2 MEQ/L (3.5-5.1); SODIUM LEVEL 142 MEQ/L (136-145); TOTAL PROTEIN 7.6 GM/DL (6.4-8.2); TROPONIN I < 0.02 NG/ML (< 0.10)
[2017-12-12 12:00] LABS: LACTIC ACID SEPSIS PROTOCOL 1.9 MMOL/L (0.4-2.0)
[2017-12-12 12:05] LABS: CK-MB VALUE MASS 1.4 NG/ML (0.0-3.6); MB/CK RELATIVE INDEX 1.06 (< OR =4); NT-PRO BNP 22 PG/ML (<125)
[2017-12-12] MEDS: ONDANSETRON 4MG/2ML VIAL (J2405) IV (12:15)
[2017-12-12] MEDS: MORPHINE 4 MG/ML 1ML SYRINGE IV (12:15)
[2017-12-12] MEDS: MORPHINE 2 MG/ML 1ML SYRINGE IV (13:50)
[2017-12-12] MEDS ORDERED: ALBUTEROL SULFATE 2.5 MG/0.5 ML INH NEB SOLN INH (18:30)
[2017-12-12] MEDS ORDERED: ALBUTEROL 90 MCG/ACT 8GM HFA INHALER INH (18:30)
[2017-12-12] MEDS ORDERED: ACETAMINOPHEN TAB 650MG DOSE (2X325MG) PO (18:45)
[2017-12-12] MEDS: PERCOCET 5MG/325MG TAB PO (18:55)
[2017-12-12] MEDS ORDERED: ONDANSETRON 4MG/2ML VIAL (J2405) IV (19:45)
[2017-12-12] MEDS: MAGNESIUM CITRATE 300 ML BTL PO (19:45)
[2017-12-12 19:46] LABS: CK-MB VALUE MASS 1.3 NG/ML (0.0-3.6); CPK CREATINE PHOSPHOKINASE 136 U/L (39-308); MB/CK RELATIVE INDEX 0.95 (< OR =4); TROPONIN I < 0.02 NG/ML (< 0.10)
[2017-12-12] MEDS: levETIRAcetam 250MG TABLET (KEPPRA) PO (21:00)
[2017-12-12] MEDS: traZODone 50 MG TAB PO (21:00)
[2017-12-12] MEDS: hydrOXYzine 50 MG TAB PO (21:00)
[2017-12-12] MEDS: FERROUS GLUCONATE 324 MG TAB PO ×2 (21:00→21:54)
[2017-12-12] MEDS: ZONISAMIDE 100 MG CAP (ZONEGRAN) PO (21:00)
[2017-12-12] MEDS: CYANOCOBALAMIN 500 MCG TAB PO (21:00)
[2017-12-12] MEDS: PANTOPRAZOLE 40MG TAB (PROTONIX) PO (21:00)
[2017-12-12] MEDS: APIXABAN 5 MG TAB (ELIQUIS) PO (21:00)
[2017-12-12] MEDS: BISACODYL 5 MG TAB PO (21:00)
[2017-12-12] MEDS: ROSUVASTATIN 10 MG TAB (CRESTOR) PO ×2 (21:00→21:51)
[2017-12-13] MEDS: PERCOCET 5MG/325MG TAB PO ×3 (02:15→21:30)
[2017-12-13 02:33] LABS: CK-MB VALUE MASS 1.1 NG/ML (0.0-3.6); CPK CREATINE PHOSPHOKINASE 125 U/L (39-308); MB/CK RELATIVE INDEX 0.88 (< OR =4); TROPONIN I < 0.02 NG/ML (< 0.10)
[2017-12-13 06:44] LABS: HEMATOCRIT 43.9 % (42.0-52.0); HEMOGLOBIN 14.2 g/dl (14.0-18.0); MEAN CORPUSCULAR HEMOGLOBIN 29.5 pg (27.0-33.0); MEAN CORPUSCULAR HGB CONC 32.3 g/dl (32.0-36.5); MEAN CORPUSCULAR VOLUME 91.3 fl (80.0-96.0); PLATELET COUNT, AUTOMATED 224 10^3/uL (150-450); RED BLOOD COUNT 4.81 10^6/uL (4.30-6.10); WHITE BLOOD COUNT 7.3 10^3/uL (4.0-10.0)
[2017-12-13 07:08] LABS: ANION GAP 6 MEQ/L (8-16); BLOOD UREA NITROGEN 8 MG/DL (7-18); CALCIUM LEVEL 8.8 MG/DL (8.5-10.1); CARBON DIOXIDE LEVEL 28 MEQ/L (21-32); CHLORIDE LEVEL 107 MEQ/L (98-107); CREATININE FOR GFR 0.99 MG/DL (0.70-1.30); GLOMERULAR FILTRATION RATE > 60.0 (>56); GLUCOSE, FASTING 105 MG/DL (70-105); SODIUM LEVEL 141 MEQ/L (136-145)
[2017-12-13] MEDS: VANCOMYCIN HCL 1,000 MG, VIAL MATE ADAPTER 1 EACH in D5W 250 ML IV (07:51)
[2017-12-13] MEDS: NS 1,000 ML IV ×2 (07:52→17:15)
[2017-12-13] MEDS: EUCERIN 120GM CREAM TOP ×2 (09:00→21:33)
[2017-12-13] MEDS ORDERED: VANCOMYCIN HCL 1,000 MG, VIAL MATE ADAPTER 1 EACH in D5W 250 ML IV (09:00)
[2017-12-13] MEDS: MIRALAX *UNIT DOSE* 17GM PACKET PO (09:00)
[2017-12-13] MEDS: FOLIC ACID 1 MG TAB PO (09:01)
[2017-12-13] MEDS: BISACODYL 5 MG TAB PO ×2 (09:01→21:33)
[2017-12-13] MEDS: VITAMIN D 1,000 INTERNATIONAL UNITS TABLET PO (09:01)
[2017-12-13] MEDS: MULTIVITAMINS/MINERALS THERAP 1 TAB PO (09:01)
[2017-12-13] MEDS: PARoxetine 20 MG TAB PO (09:01)
[2017-12-13] MEDS: PANTOPRAZOLE 40MG TAB (PROTONIX) PO ×2 (09:01→21:33)
[2017-12-13] MEDS: levETIRAcetam 250MG TABLET (KEPPRA) PO ×2 (09:01→21:34)
[2017-12-13] MEDS: APIXABAN 5 MG TAB (ELIQUIS) PO ×2 (09:01→21:34)
[2017-12-13] MEDS: hydrOXYzine 50 MG TAB PO ×2 (09:12→21:33)
[2017-12-13] MEDS: MAGNESIUM CITRATE 300 ML BTL PO (09:13)
[2017-12-13] MEDS: FLEET ENEMA PR (09:30)
[2017-12-13] MEDS ORDERED: CYCLOBENZAPRINE 10 MG TAB PO (16:00)
[2017-12-13] MEDS: METAXALONE 400 MG 1/2 TAB PO ×2 (16:46→21:33)
[2017-12-13] MEDS: ZONISAMIDE 100 MG CAP (ZONEGRAN) PO (21:32)
[2017-12-13] MEDS: CYANOCOBALAMIN 500 MCG TAB PO (21:33)
[2017-12-13] MEDS: traZODone 50 MG TAB PO (21:34)
[2017-12-13 22:20] LABS: CPK CREATINE PHOSPHOKINASE 78 U/L (39-308); TROPONIN I < 0.02 NG/ML (< 0.10)
[2017-12-13 22:23] LABS: MB/CK RELATIVE INDEX 1.28 (< OR =4)
[2017-12-14] MEDS: ROSUVASTATIN 10 MG TAB (CRESTOR) PO ×2 (00:33→21:12)
[2017-12-14] MEDS: FERROUS GLUCONATE 324 MG TAB PO ×2 (00:33→21:12)
[2017-12-14 06:20] LABS: HEMATOCRIT 40.5 % (42.0-52.0); HEMOGLOBIN 13.2 g/dl (14.0-18.0); MEAN CORPUSCULAR HEMOGLOBIN 30.1 pg (27.0-33.0); MEAN CORPUSCULAR HGB CONC 32.6 g/dl (32.0-36.5); MEAN CORPUSCULAR VOLUME 92.3 fl (80.0-96.0); PLATELET COUNT, AUTOMATED 205 10^3/uL (150-450); RED BLOOD COUNT 4.39 10^6/uL (4.30-6.10); RED CELL DISTRIBUTION WIDTH 16.8 % (11.5-14.5); WHITE BLOOD COUNT 5.7 10^3/uL (4.0-10.0)
[2017-12-14 06:37] LABS: ANION GAP 6 MEQ/L (8-16); BLOOD UREA NITROGEN 13 MG/DL (7-18); CALCIUM LEVEL 8.4 MG/DL (8.5-10.1); CARBON DIOXIDE LEVEL 27 MEQ/L (21-32); CHLORIDE LEVEL 110 MEQ/L (98-107); CREATININE FOR GFR 0.88 MG/DL (0.70-1.30); GLOMERULAR FILTRATION RATE > 60.0 (>56); GLUCOSE, FASTING 125 MG/DL (70-105); MAGNESIUM LEVEL 2.1 MG/DL (1.8-2.4); SODIUM LEVEL 143 MEQ/L (136-145)
[2017-12-14] MEDS: VITAMIN D 1,000 INTERNATIONAL UNITS TABLET PO (09:24)
[2017-12-14] MEDS: levETIRAcetam 250MG TABLET (KEPPRA) PO ×2 (09:24→21:12)
[2017-12-14] MEDS: PARoxetine 20 MG TAB PO (09:24)
[2017-12-14] MEDS: BISACODYL 5 MG TAB PO ×2 (09:24→21:12)
[2017-12-14] MEDS: METAXALONE 400 MG 1/2 TAB PO ×3 (09:24→21:12)
[2017-12-14] MEDS: MIRALAX *UNIT DOSE* 17GM PACKET PO (09:24)
[2017-12-14] MEDS: hydrOXYzine 50 MG TAB PO ×2 (09:24→21:11)
[2017-12-14] MEDS: MULTIVITAMINS/MINERALS THERAP 1 TAB PO (09:24)
[2017-12-14] MEDS: FOLIC ACID 1 MG TAB PO (09:24)
[2017-12-14] MEDS: APIXABAN 5 MG TAB (ELIQUIS) PO ×2 (09:24→21:12)
[2017-12-14] MEDS: PANTOPRAZOLE 40MG TAB (PROTONIX) PO ×2 (09:24→21:13)
[2017-12-14] MEDS: MAGNESIUM CITRATE 300 ML BTL PO (09:25)
[2017-12-14] MEDS: EUCERIN 120GM CREAM TOP ×2 (09:25→21:13)
[2017-12-14] MEDS: ZONISAMIDE 100 MG CAP (ZONEGRAN) PO (21:12)
[2017-12-14] MEDS: CYANOCOBALAMIN 500 MCG TAB PO (21:12)
[2017-12-14] MEDS: traZODone 50 MG TAB PO (21:13)
[2017-12-15 06:03] LABS: HEMATOCRIT 42.5 % (42.0-52.0); HEMOGLOBIN 13.9 g/dl (14.0-18.0); MEAN CORPUSCULAR HGB CONC 32.7 g/dl (32.0-36.5); MEAN CORPUSCULAR VOLUME 91.6 fl (80.0-96.0); PLATELET COUNT, AUTOMATED 200 10^3/uL (150-450); RED BLOOD COUNT 4.64 10^6/uL (4.30-6.10); RED CELL DISTRIBUTION WIDTH 16.8 % (11.5-14.5); WHITE BLOOD COUNT 7.9 10^3/uL (4.0-10.0)
[2017-12-15 06:24] LABS: ANION GAP 6 MEQ/L (8-16); BLOOD UREA NITROGEN 16 MG/DL (7-18); CALCIUM LEVEL 9.1 MG/DL (8.5-10.1); CARBON DIOXIDE LEVEL 27 MEQ/L (21-32); CHLORIDE LEVEL 111 MEQ/L (98-107); CREATININE FOR GFR 0.99 MG/DL (0.70-1.30); GLOMERULAR FILTRATION RATE > 60.0 (>56); GLUCOSE, FASTING 123 MG/DL (70-105); MAGNESIUM LEVEL 1.8 MG/DL (1.8-2.4); POTASSIUM SERUM 4.2 MEQ/L (3.5-5.1); SODIUM LEVEL 144 MEQ/L (136-145)
[2017-12-15] MEDS: BISACODYL 5 MG TAB PO ×2 (09:45→20:29)
[2017-12-15] MEDS: APIXABAN 5 MG TAB (ELIQUIS) PO ×2 (09:45→20:29)
[2017-12-15] MEDS: MIRALAX *UNIT DOSE* 17GM PACKET PO (09:45)
[2017-12-15] MEDS: MOM 30ML SUSPENSION UDC PO (09:45)
[2017-12-15] MEDS: PARoxetine 20 MG TAB PO (09:45)
[2017-12-15] MEDS: PANTOPRAZOLE 40MG TAB (PROTONIX) PO ×2 (09:45→20:29)
[2017-12-15] MEDS: levETIRAcetam 250MG TABLET (KEPPRA) PO ×2 (09:45→20:28)
[2017-12-15] MEDS: hydrOXYzine 50 MG TAB PO ×2 (09:45→20:28)
[2017-12-15] MEDS: METAXALONE 400 MG 1/2 TAB PO ×3 (09:45→20:29)
[2017-12-15] MEDS: MULTIVITAMINS/MINERALS THERAP 1 TAB PO (09:45)
[2017-12-15] MEDS: VITAMIN D 1,000 INTERNATIONAL UNITS TABLET PO (09:45)
[2017-12-15] MEDS: FOLIC ACID 1 MG TAB PO (09:45)
[2017-12-15] MEDS: MAGNESIUM CITRATE 300 ML BTL PO (09:46)
[2017-12-15] MEDS: EUCERIN 120GM CREAM TOP ×2 (09:46→20:30)
[2017-12-15] MEDS ORDERED: FLEET ENEMA PR (11:30)
[2017-12-15] MEDS: ASPIRIN 81 MG ENTERIC TAB PO (17:24)
[2017-12-15] MEDS: PERCOCET 5MG/325MG TAB PO (17:25)
[2017-12-15 18:15] LABS: CPK CREATINE PHOSPHOKINASE 52 U/L (39-308); MB/CK RELATIVE INDEX 1.92 (< OR =4); TROPONIN I < 0.02 NG/ML (< 0.10)
[2017-12-15] MEDS: traZODone 50 MG TAB PO (20:29)
[2017-12-15] MEDS: CYANOCOBALAMIN 500 MCG TAB PO (20:29)
[2017-12-15] MEDS: ROSUVASTATIN 10 MG TAB (CRESTOR) PO (20:29)
[2017-12-15] MEDS: FERROUS GLUCONATE 324 MG TAB PO (20:29)
[2017-12-15] MEDS: ZONISAMIDE 100 MG CAP (ZONEGRAN) PO (20:29)
[2017-12-16 06:10] LABS: HEMATOCRIT 41.2 % (42.0-52.0); HEMOGLOBIN 13.5 g/dl (14.0-18.0); MEAN CORPUSCULAR HEMOGLOBIN 29.8 pg (27.0-33.0); MEAN CORPUSCULAR HGB CONC 32.8 g/dl (32.0-36.5); MEAN CORPUSCULAR VOLUME 90.9 fl (80.0-96.0); PLATELET COUNT, AUTOMATED 204 10^3/uL (150-450); RED BLOOD COUNT 4.53 10^6/uL (4.30-6.10); RED CELL DISTRIBUTION WIDTH 16.9 % (11.5-14.5); WHITE BLOOD COUNT 6.6 10^3/uL (4.0-10.0)
[2017-12-16 06:25] LABS: ANION GAP 6 MEQ/L (8-16); BLOOD UREA NITROGEN 13 MG/DL (7-18); CALCIUM LEVEL 9.2 MG/DL (8.5-10.1); CARBON DIOXIDE LEVEL 27 MEQ/L (21-32); CHLORIDE LEVEL 108 MEQ/L (98-107); CREATININE FOR GFR 0.86 MG/DL (0.70-1.30); GLOMERULAR FILTRATION RATE > 60.0 (>56); GLUCOSE, FASTING 112 MG/DL (70-105); POTASSIUM SERUM 3.7 MEQ/L (3.5-5.1); SODIUM LEVEL 141 MEQ/L (136-145)
[2017-12-16] MEDS: EUCERIN 120GM CREAM TOP ×2 (09:00→20:31)
[2017-12-16] MEDS: MIRALAX *UNIT DOSE* 17GM PACKET PO (09:00)
[2017-12-16] MEDS: MAGNESIUM CITRATE 300 ML BTL PO (09:00)
[2017-12-16] MEDS: APIXABAN 5 MG TAB (ELIQUIS) PO ×2 (09:08→20:29)
[2017-12-16] MEDS: METAXALONE 400 MG 1/2 TAB PO ×3 (09:08→20:29)
[2017-12-16] MEDS: BISACODYL 5 MG TAB PO ×2 (09:08→20:29)
[2017-12-16] MEDS: MULTIVITAMINS/MINERALS THERAP 1 TAB PO (09:08)
[2017-12-16] MEDS: VITAMIN D 1,000 INTERNATIONAL UNITS TABLET PO (09:09)
[2017-12-16] MEDS: hydrOXYzine 50 MG TAB PO ×2 (09:09→20:29)
[2017-12-16] MEDS: FOLIC ACID 1 MG TAB PO (09:09)
[2017-12-16] MEDS: PARoxetine 20 MG TAB PO (09:09)
[2017-12-16] MEDS: PANTOPRAZOLE 40MG TAB (PROTONIX) PO ×2 (09:09→20:30)
[2017-12-16] MEDS: levETIRAcetam 250MG TABLET (KEPPRA) PO ×2 (09:09→20:30)
[2017-12-16] MEDS: ASPIRIN 81 MG ENTERIC TAB PO (09:09)
[2017-12-16] MEDS: ZONISAMIDE 100 MG CAP (ZONEGRAN) PO (20:29)
[2017-12-16] MEDS: traZODone 50 MG TAB PO (20:29)
[2017-12-16] MEDS: FERROUS GLUCONATE 324 MG TAB PO (20:30)
[2017-12-16] MEDS: CYANOCOBALAMIN 500 MCG TAB PO (20:30)
[2017-12-16] MEDS: ROSUVASTATIN 10 MG TAB (CRESTOR) PO (20:30)
[2017-12-16] MEDS: PERCOCET 5MG/325MG TAB PO (20:38)
[2017-12-16] MEDS ORDERED: MORPHINE 2 MG/ML 1ML SYRINGE IV (22:30)
[2017-12-16] MEDS: MORPHINE 2 MG/ML 1ML SYRINGE IV (22:59)
[2017-12-17] MEDS: MORPHINE 2 MG/ML 1ML SYRINGE IV (06:00)
[2017-12-17 06:06] LABS: HEMATOCRIT 42.9 % (42.0-52.0); HEMOGLOBIN 14.2 g/dl (14.0-18.0); MEAN CORPUSCULAR HGB CONC 33.1 g/dl (32.0-36.5); MEAN CORPUSCULAR VOLUME 90.7 fl (80.0-96.0); PLATELET COUNT, AUTOMATED 216 10^3/uL (150-450); RED BLOOD COUNT 4.73 10^6/uL (4.30-6.10); RED CELL DISTRIBUTION WIDTH 16.7 % (11.5-14.5); WHITE BLOOD COUNT 7.4 10^3/uL (4.0-10.0)
[2017-12-17 06:24] LABS: ANION GAP 8 MEQ/L (8-16); BLOOD UREA NITROGEN 10 MG/DL (7-18); CALCIUM LEVEL 9.1 MG/DL (8.5-10.1); CARBON DIOXIDE LEVEL 27 MEQ/L (21-32); CHLORIDE LEVEL 108 MEQ/L (98-107); CREATININE FOR GFR 0.94 MG/DL (0.70-1.30); GLOMERULAR FILTRATION RATE > 60.0 (>56); GLUCOSE, FASTING 107 MG/DL (70-105); POTASSIUM SERUM 3.8 MEQ/L (3.5-5.1); SODIUM LEVEL 143 MEQ/L (136-145)
[2017-12-17] MEDS: MULTIVITAMINS/MINERALS THERAP 1 TAB PO (08:09)
[2017-12-17] MEDS: PANTOPRAZOLE 40MG TAB (PROTONIX) PO (08:09)
[2017-12-17] MEDS: levETIRAcetam 250MG TABLET (KEPPRA) PO (08:09)
[2017-12-17] MEDS: VITAMIN D 1,000 INTERNATIONAL UNITS TABLET PO (08:09)
[2017-12-17] MEDS: APIXABAN 5 MG TAB (ELIQUIS) PO (08:09)
[2017-12-17] MEDS: ASPIRIN 81 MG ENTERIC TAB PO (08:09)
[2017-12-17] MEDS: PARoxetine 20 MG TAB PO (08:09)
[2017-12-17] MEDS: hydrOXYzine 50 MG TAB PO (08:10)
[2017-12-17] MEDS: BISACODYL 5 MG TAB PO (08:10)
[2017-12-17] MEDS: MIRALAX *UNIT DOSE* 17GM PACKET PO (08:10)
[2017-12-17] MEDS: EUCERIN 120GM CREAM TOP (08:10)
[2017-12-17] MEDS: FOLIC ACID 1 MG TAB PO (08:10)
[2017-12-17] MEDS: METAXALONE 400 MG 1/2 TAB PO ×2 (08:10→15:27)
[2017-12-17] MEDS: MAGNESIUM CITRATE 300 ML BTL PO (08:10)
[2017-12-17] MEDS: NICOTINE 21MG/24HR 1 EA TRANSDERMAL TD (09:00)
[2017-12-17] MEDS: PERCOCET 5MG/325MG TAB PO (13:43)
== END 2017-12-17 17:05 | disposition home health service (06) | DRG 347 ==
LOC: M MSPAV 12-13 00:49 → M ED 10:40 → M ED INP 18:41
DX: M51.16 Intervertebral disc disorders with radiculopathy, lumbar region (principal); I10 Essential (primary) hypertension; D50.9 Iron deficiency anemia, unspecified; F32.9 Major depressive disorder, single episode, unspecified; F17.210 Nicotine dependence, cigarettes, uncomplicated; I25.10 Atherosclerotic heart disease of native coronary artery without angina pectoris; I25.2 Old myocardial infarction; K21.9 Gastro-esophageal reflux disease without esophagitis; E78.5 Hyperlipidemia, unspecified; G47.00 Insomnia, unspecified; M19.90 Unspecified osteoarthritis, unspecified site; J44.9 Chronic obstructive pulmonary disease, unspecified; R11.2 Nausea with vomiting, unspecified; K59.00 Constipation, unspecified; K64.8 Other hemorrhoids; G47.30 Sleep apnea, unspecified; R07.89 Other chest pain; R29.6 Repeated falls; I48.0 Paroxysmal atrial fibrillation; F41.9 Anxiety disorder, unspecified; G40.909 Epilepsy, unspecified, not intractable, without status epilepticus; R26.81 Unsteadiness on feet; R91.1 Solitary pulmonary nodule; H80.93 Unspecified otosclerosis, bilateral; Z85.828 Personal history of other malignant neoplasm of skin; Z95.5 Presence of coronary angioplasty implant and graft; Z79.01 Long term (current) use of anticoagulants; Z79.899 Other long term (current) drug therapy; Z88.0 Allergy status to penicillin; Z91.040 Latex allergy status; Z91.048 Other nonmedicinal substance allergy status

== ENCOUNTER → 2017-12-31 | Outpatient (CLI) | payer MEDICAID | LOC: M SLEEP 19:17 | DX: G47.33 Obstructive sleep apnea (adult) (pediatric) (principal) | CPT/HCPCS: 95811 ==

== ENCOUNTER 2018-01-31 09:36 | Emergency (ER) | payer MEDICAID | END 2018-01-31 11:20 | disposition home or self-care (01) | LOC: M ED 09:36 | DX: S20.211A Contusion of right front wall of thorax, initial encounter (principal); W19.XXXA Unspecified fall, initial encounter; Y92.89 Other specified places as the place of occurrence of the external cause; M25.561 Pain in right knee; I25.10 Atherosclerotic heart disease of native coronary artery without angina pectoris; J45.909 Unspecified asthma, uncomplicated; J44.9 Chronic obstructive pulmonary disease, unspecified; F17.210 Nicotine dependence, cigarettes, uncomplicated; Z79.82 Long term (current) use of aspirin; Z79.899 Other long term (current) drug therapy; Z79.01 Long term (current) use of anticoagulants; Z79.2 Long term (current) use of antibiotics; Z87.09 Personal history of other diseases of the respiratory system; Z95.5 Presence of coronary angioplasty implant and graft; Z98.890 Other specified postprocedural states; Z88.0 Allergy status to penicillin; Z88.8 Allergy status to other drugs, medicaments and biological substances; Z91.048 Other nonmedicinal substance allergy status | CPT/HCPCS: 71046 ==

== ENCOUNTER → 2018-03-15 | Outpatient (CLI) | payer MEDICAID | LOC: M PAIN 11:00 | DX: G89.29 Other chronic pain (principal); M54.2 Cervicalgia; M47.812 Spondylosis without myelopathy or radiculopathy, cervical region; R22.1 Localized swelling, mass and lump, neck; I10 Essential (primary) hypertension; D64.9 Anemia, unspecified; J44.9 Chronic obstructive pulmonary disease, unspecified; G47.30 Sleep apnea, unspecified; E78.5 Hyperlipidemia, unspecified; K74.60 Unspecified cirrhosis of liver; R45.0 Nervousness; L25.9 Unspecified contact dermatitis, unspecified cause; F17.210 Nicotine dependence, cigarettes, uncomplicated; Z96.641 Presence of right artificial hip joint; Z95.5 Presence of coronary angioplasty implant and graft; Z86.718 Personal history of other venous thrombosis and embolism; Z98.1 Arthrodesis status; Z79.891 Long term (current) use of opiate analgesic; Z88.0 Allergy status to penicillin; Z91.040 Latex allergy status | CPT/HCPCS: G0463 ==

== ENCOUNTER 2018-04-02 13:26 | Emergency (ER) | payer MEDICAID ==
[2018-04-02] MEDS: ASPIRIN 81 MG CHEW TABLET PO (14:15)
[2018-04-02 14:24] LABS: BASO # 0.1 10^3/uL (0.0-0.2); BASO % 0.6 % (0.0-1.0); EOS # 0.1 10^3/uL (0.0-0.50); HEMOGLOBIN 15.8 g/dl (13.5-17.5); IMMATURE GRANULOCYTE % 0.2 % (0-3.0); LYMPH # 1.7 10^3/uL (1.5-4.5); MEAN CORPUSCULAR HEMOGLOBIN 31.5 pg (27.0-33.0); MEAN CORPUSCULAR HGB CONC 34.3 g/dl (32.0-36.5); MEAN CORPUSCULAR VOLUME 91.6 fl (80.0-96.0); MONO % 12.6 % (0.0-5.0); NEUTROPHILS # 5.3 10^3/uL (1.8-7.7); NEUTROPHILS % 64.6 % (36.0-66.0); PLATELET COUNT, AUTOMATED 185 10^3/uL (150-450); RED BLOOD COUNT 5.02 10^6/uL (4.30-6.10); RED CELL DISTRIBUTION WIDTH 12.6 % (11.5-14.5); WHITE BLOOD COUNT 8.2 10^3/uL (4.0-10.0)
[2018-04-02 14:55] LABS: ALBUMIN 3.8 GM/DL (3.2-5.2); ALKALINE PHOSPHATASE 111 U/L (45-117); ALT/SGPT 19 U/L (12-78); ANION GAP 7 MEQ/L (8-16); AST/SGOT 28 U/L (7-37); BILIRUBIN,DIRECT < 0.1 MG/DL (0.0-0.2); BILIRUBIN,TOTAL 0.6 MG/DL (0.2-1.0); BLOOD UREA NITROGEN 13 MG/DL (7-18); CALCIUM LEVEL 9.1 MG/DL (8.5-10.1); CARBON DIOXIDE LEVEL 24 MEQ/L (21-32); CHLORIDE LEVEL 110 MEQ/L (98-107); CK-MB VALUE MASS < 1.0 NG/ML (<3.6); CPK CREATINE PHOSPHOKINASE 117 U/L (39-308); CREATININE FOR GFR 1.02 MG/DL (0.70-1.30); GLOMERULAR FILTRATION RATE > 60.0 (>56); GLUCOSE, FASTING 90 MG/DL (70-100); LIPASE 213 U/L (73-393); MB/CK RELATIVE INDEX 0.85 (< OR =4); POTASSIUM SERUM 4.3 MEQ/L (3.5-5.1); SODIUM LEVEL 141 MEQ/L (136-145); TOTAL PROTEIN 7.6 GM/DL (6.4-8.2); TROPONIN I < 0.02 NG/ML (< 0.10)
[2018-04-02] MEDS: GI COCKTAIL 50ML BTL(HYOSCYAMINE/MAALOX/LIDOCAINE VISCOUS)(1:3:1) PO (16:12)
[2018-04-02 18:18] LABS: CK-MB VALUE MASS < 1.0 NG/ML (<3.6); CPK CREATINE PHOSPHOKINASE 81 U/L (39-308); MB/CK RELATIVE INDEX 1.23 (< OR =4); TROPONIN I < 0.02 NG/ML (< 0.10)
== END 2018-04-02 19:09 | disposition home or self-care (01) ==
LOC: M ED 13:26
DX: R07.89 Other chest pain (principal); I45.10 Unspecified right bundle-branch block; I11.9 Hypertensive heart disease without heart failure; E78.5 Hyperlipidemia, unspecified; I25.10 Atherosclerotic heart disease of native coronary artery without angina pectoris; J44.9 Chronic obstructive pulmonary disease, unspecified; F32.9 Major depressive disorder, single episode, unspecified; R56.9 Unspecified convulsions; Z95.5 Presence of coronary angioplasty implant and graft; Z95.1 Presence of aortocoronary bypass graft; F17.210 Nicotine dependence, cigarettes, uncomplicated; Z88.8 Allergy status to other drugs, medicaments and biological substances; Z88.0 Allergy status to penicillin; Z91.048 Other nonmedicinal substance allergy status; Z91.040 Latex allergy status; Z79.899 Other long term (current) drug therapy; Z79.82 Long term (current) use of aspirin; Z79.01 Long term (current) use of anticoagulants
CPT/HCPCS: 71045

== ENCOUNTER → 2019-03-25 | Outpatient (CLI) | payer MEDICAID ==
[~2019-03-25] MED LIST changes: -/NITR4TASL SL; -/PANT40TA OR; -/TIOT18INH INH; +ACET-716 PO; -ACET30TAB PO; +ASPI81TAEC PO; +BACT2OIN10 TOP; -DOCU10ELUD PO; +DOCU5LIQ PO; +DOXY100C37 PO; +ELIQ5TAB; +ELIQ5TAB PO; +FERR325T16 PO; +FERR32TA; +FOLI1TAB11 PO; -FOLI1TAB4 PO; -GABA-282 PO; +GABA-843 PO; -ISOS10TAB PO; +ISOS1TAB12 PO; +ISOS30TA4; +LEVO500T3 PO; +LEVOTAB10; -LIDO5OI TOP; +LIDO5OIN TOP; +LISI-1046 PO; -LISI2.5T3 PO; +LORA-243 PO; +LORA10CA PO; -LORA10TA2 PO; +MELO15TA28 PO; -MELO15TA4 PO; +META1TAB22 PO; +MIRA33504 PO; +MUPI2OI; +NITR0.4S SL; -PANT40TA2 PO; +PANT40TA3 PO; +PAXI40TA10 PO; +PERCOCET PO; +PROT1TAB2 OR; +RANI150C PO; +SPIR1CAP INH; +TRAZ-160 PO; +VIST50CA PO; +VITMTA PO; +[UNRECOGNIZED DRUG - OTHER]
--- NOTE | 2019-03-27 15:47 | REP ---
REASON FOR EXAM: Solitary pulmonary nodule. No prior PET/CTs for comparison. Prior CT examination of the chest from an outside institution of 02/12/2019 was reviewed. After the intravenous administration of 8.9 millicuries of FDG-18 triplane whole body PET/CT was performed from the skull base to the mid thigh. In the right axilla there is an FDG-18 avid, but non-hypermetabolic lymph node. This is nonspecific and would need to be correlated clinically. No intrathoracic abnormal hypermetabolic activity is present. No abnormal hypermetabolic activity is seen in the neck or in the abdomen. Seen in the region of the right rectal wall there is a focus of hypermetabolic activity with SUV values equaling 5.0. This is nonspecific in this location. No other abnormal hypermetabolic activity is seen in the pelvis. IMPRESSION: 1. No abnormal intrathoracic hypermetabolic activity. 2. Avid, but non-hypermetabolic right axillary lymph node which needs to be correlated clinically with appropriate followup. 3. Hypermetabolic activity seen in the region of the right rectal wall which would need to be correlated clinically. Whether this represents a true lesion or contaminate cannot be stated by this exam. The patient's last CT examination of the abdomen and pelvis of record is [facility]03/[facility] That examination showed intense spray artifact arising from bilateral hip prostheses. Consider followup pelvic CT for comparison along with clinical evaluation. Electronically Signed by Rich Killian DO 03/27/2019 06:57 P
== END ==
LOC: M PLARAD 09:21
PROVIDERS: ATTEND Nurse Practitioner Adult Health
DX: R93.5 Abnormal findings on diagnostic imaging of other abdominal regions, including retroperitoneum (principal)
CPT/HCPCS: 78815; A9552

== ENCOUNTER → 2019-04-17 | Outpatient (REF) | LOC: M LAB LCGH 08:46 | PROVIDERS: ATTEND Surgery | DX: R10.13 Epigastric pain (principal) ==

== ENCOUNTER 2023-11-19 16:03 | Emergency (ER) | payer MEDICAID, OTHER ==
[~2023-11-19] VITALS: Ht 180.3 cm; Wt 126.8 kg
[~2023-11-19 16:03] MED LIST changes: +ALBU2.5V10 INH; -ALBU83IN INH; +ASPI-569 PO; -ASPI81TAEC PO; +CLOP75TA99 PO; +CYAN100049 PO; +DOXY-443 PO; -DOXY100C37 PO; +FERR324T21 PO; -FERR325T16 PO; +GABA-282 PO; -GABA-843 PO; +ISOS1TAB35; +ISOS1TAB35 PO; -ISOS30TA4; -ISOS30TA4 PO; +LEVO1TAB39 PO; -LEVO500T3 PO; -LISI-1046 PO; +LISI2.5T9 PO; +PANT40TA29 PO; -PANT40TA3 PO; -PAXI40TA10 PO; +PAXI40TA12 PO; -PLAV1TAB2 PO; -SUCR10SS PO; +SUCR1ORA2 PO; -TRAZ-160 PO; +TRAZ-252 PO; -VITA10002 PO; -ZONI100C2 PO; +ZONI100C67 PO
[2023-11-19] MEDS ORDERED: ASPIRIN 81MG CHEW TABLET PO ONE (16:30)
[2023-11-19] MEDS ORDERED: ONDANSETRON 4MG 2ML VIAL IV ONE (16:30)
[2023-11-19] MEDS ORDERED: NITROGLYCERIN 0.4MG SUBL TABLET SL PRN (16:30)
[2023-11-19 17:11] LABS: INR 0.96; PROTHROMBIN TIME 12.5 SECONDS (12.5-14.5)
[2023-11-19 17:12] LABS: PARTIAL THROMBOPLASTIN TIME 25.2 SECONDS (24.8-34.2)
[2023-11-19 17:13] LABS: BASO # 0.1 10^3/uL (0.0-0.2); BASO % 0.7 % (0.0-1.0); EOS # 0.1 10^3/uL (0.0-0.5); HEMATOCRIT 47.2 % (42.0-52.0); HEMOGLOBIN 15.4 g/dl (13.5-17.5); LYMPH # 1.2 10^3/uL (1.5-5.0); LYMPH % 15.2 % (24.0-44.0); MEAN CORPUSCULAR HGB CONC 32.6 g/dl (32.0-36.5); MEAN CORPUSCULAR VOLUME 101.3 fl (80.0-96.0); MONO # 0.8 10^3/uL (0.0-0.8); NEUTROPHILS # 5.6 10^3/uL (1.5-8.5); NEUTROPHILS % 72.7 % (36.0-66.0); PLATELET COUNT, AUTOMATED 195 10^3/uL (150-450); RED BLOOD COUNT 4.66 10^6/uL (4.30-6.10); WHITE BLOOD COUNT 7.6 10^3/uL (4.0-10.0)
[2023-11-19 17:20] LABS: LIPASE 54 U/L (12-53)
[2023-11-19 17:22] LABS: ALBUMIN 3.6 G/DL (3.2-5.2); ALKALINE PHOSPHATASE 119 U/L (46-116); ALT/SGPT 68 U/L (7.0-40); AST/SGOT 64 U/L (<34); BILIRUBIN,DIRECT 0.1 MG/DL (<0.4); BILIRUBIN,TOTAL 0.5 MG/DL (0.3-1.2); BLOOD UREA NITROGEN 13 MG/DL (9-23); CARBON DIOXIDE LEVEL 29 MMOL/L (20-31); CHLORIDE LEVEL 103 MMOL/L (98-107); CK-MB VALUE MASS < 1.0 NG/ML (<3.6); CREATININE FOR GFR 1.07 MG/DL (0.70-1.30); GLOMERULAR FILTRATION RATE > 60.0 (>49); GLUCOSE, FASTING 199 MG/DL (74-106); POTASSIUM SERUM 4.3 MMOL/L (3.5-5.1); SODIUM LEVEL 136 MMOL/L (136-145); TOTAL PROTEIN 7.8 G/DL (5.7-8.2)
[2023-11-19 17:23] LABS: THYROID STIMULATING HORMONE 1.524 uIU/ML (0.55-4.78)
[2023-11-19 17:24] LABS: CPK CREATINE PHOSPHOKINASE 164 U/L (46-171); FREE T4 1.06 NG/DL (0.89-1.76)
[2023-11-19 17:28] LABS: RSV AMPLIFICATION NEGATIVE (NEGATIVE)
[2023-11-19] MEDS: MORPHINE 2 MG/ML 1ML VIAL IV PRN ×2 (17:29→21:02)
[2023-11-19] MEDS ORDERED: ISOVUE-370 76% 100ML VIAL As Ordered ONE (17:47)
[2023-11-19 19:11] LABS: CK-MB VALUE MASS < 1.0 NG/ML (<3.6)
[2023-11-19 19:13] LABS: CPK CREATINE PHOSPHOKINASE 151 U/L (46-171); MB/CK RELATIVE INDEX 0.66 (< OR =4)
[2023-11-19 21:02] VITALS: BP 135/75; TEMP 98.1; O2SAT 99
== END 2023-11-19 21:37 | disposition home or self-care (01) ==
LOC: M ED 16:03
DX: R07.89 Other chest pain (principal); R10.9 Unspecified abdominal pain; Z88.0 Allergy status to penicillin; Z91.040 Latex allergy status; Z88.8 Allergy status to other drugs, medicaments and biological substances; G43.909 Migraine, unspecified, not intractable, without status migrainosus; J44.9 Chronic obstructive pulmonary disease, unspecified; F32.A Depression, unspecified; F41.9 Anxiety disorder, unspecified; E55.9 Vitamin D deficiency, unspecified; D51.9 Vitamin B12 deficiency anemia, unspecified; Z79.899 Other long term (current) drug therapy; Z79.82 Long term (current) use of aspirin; Z79.51 Long term (current) use of inhaled steroids
CPT/HCPCS: 70450; 71045; 71250; 74177; 80047; 80048; 80076; 82550; 82553; 83690; 84439; 84443; 85025; 85610; 85730; 87631; 93005; 93041; 93970; 94760; 96365; 96366; 96375; 99285; J2405; Q9967